=== PATIENT | female | born 1945 | race Caucasian/White ===

== ENCOUNTER 2016-11-17 11:45 | Outpatient (CLI) | payer OTHER | END 2016-11-17 21:29 | disposition home or self-care (01) | LOC: MLB 11:45 | PROVIDERS: ATTEND Family Medicine | DX: I10 Essential (primary) hypertension (principal); E78.5 Hyperlipidemia, unspecified; E55.9 Vitamin D deficiency, unspecified ==

== ENCOUNTER 2017-03-30 09:04 | Outpatient (CLI) | payer OTHER | END 2017-03-30 19:07 | disposition home or self-care (01) | LOC: MRD 09:04 | PROVIDERS: ATTEND Family Medicine | DX: M25.561 Pain in right knee (principal); M25.562 Pain in left knee | CPT/HCPCS: 73562 ==

== ENCOUNTER 2017-08-17 07:32 | Outpatient (CLI) | payer OTHER ==
[2017-08-17 07:53] LABS: BASOPHILS # (AUTO) 0.1 K/uL (0.00-0.22); BASOPHILS % (AUTO) 1.6 % (0.0-2.0); EOSINOPHILS # (AUTO) 0.1 K/uL (0-0.4); HEMATOCRIT 43.1 % (36-48); HEMOGLOBIN 14.2 g/dL (12.0-16.0); LYMPHOCYTES # (AUTO) 2.7 K/uL (2.5-16.5); LYMPHOCYTES % (AUTO) 41.5 % (20.5-51.1); MEAN CORPUSCULAR HEMOGLOBIN 31 pg (27-31); MEAN CORPUSCULAR HGB CONC 33 g/dL (33-37); MEAN CORPUSCULAR VOLUME 95 fL (80-94); MONOCYTES # (AUTO) 0.3 K/uL (0.8-1.0); MONOCYTES % (AUTO) 4.7 % (1.7-9.3); NEUTROPHILS # (AUTO) 3.2 K/uL (1.8-7.7); NEUTROPHILS % (AUTO) 50.2 % (42.2-75.2); PLATELET COUNT (AUTO) 241 K/uL (140-450); RED BLOOD CELL COUNT(AUTO) 4.56 MIL/uL (4.20-5.40); RED CELL DISTRIBUTION WIDTH 13.3 % (11.6-13.7); WHITE BLOOD COUNT (AUTO) 6.4 K/uL (4.8-10.8)
[2017-08-17 08:25] LABS: ALBUMIN 3.4 g/dL (3.4-5.0); CARBON DIOXIDE 30.2 mmol/L (21-32); CHOL/HDL RATIO 3.9 (1-4.5); POTASSIUM 4.2 mmol/L (3.5-5.1); THYROID STIMULATING HORMONE 1.19 uIU/mL (0.34-3.74); TOTAL BILIRUBIN 0.4 mg/dL (0.0-1.0)
== END 2017-08-17 21:00 | disposition home or self-care (01) ==
LOC: MLB 07:32
PROVIDERS: ATTEND Family Medicine
DX: I10 Essential (primary) hypertension (principal)
CPT/HCPCS: 36415; 80053; 84443; 85025

== ENCOUNTER 2018-03-19 09:24 | Outpatient (CLI) | payer OTHER ==
[2018-03-19 11:34] LABS: ALBUMIN 3.5 g/dL (3.4-5.0); ANION GAP 13.9 (8-16); CARBON DIOXIDE 25.1 mmol/L (21-32); CHOL/HDL RATIO 3.8 (1-4.5); CREATININE 0.9 mg/dL (0.6-1.3); TOTAL BILIRUBIN 0.5 mg/dL (0.0-1.0)
== END 2018-03-19 20:07 | disposition home or self-care (01) ==
LOC: MLB 09:24
PROVIDERS: ATTEND Family Medicine
DX: R73.9 Hyperglycemia, unspecified (principal); I12.9 Hypertensive chronic kidney disease with stage 1 through stage 4 chronic kidney disease, or unspecified chronic kidney disease; N18.3 Chronic kidney disease, stage 3 (moderate); E78.5 Hyperlipidemia, unspecified
CPT/HCPCS: 36415; 80053; 83036

== ENCOUNTER 2018-05-14 22:52 | Emergency (ER) | payer OTHER ==
[~2018-05-14] VITALS: Ht 175.3 cm; Wt 93.0 kg
[2018-05-14 23:17] VITALS: BP 175/80
[2018-05-15 01:03] VITALS: BP 175/80
== END 2018-05-15 01:03 | disposition home or self-care (01) ==
LOC: MED 22:52
DX: K91.840 Postprocedural hemorrhage of a digestive system organ or structure following a digestive system procedure (principal); I10 Essential (primary) hypertension; E78.00 Pure hypercholesterolemia, unspecified; Z90.49 Acquired absence of other specified parts of digestive tract; Z90.89 Acquired absence of other organs; Z88.1 Allergy status to other antibiotic agents
CPT/HCPCS: 99281

== ENCOUNTER 2018-11-14 22:02 | Emergency (ER) | payer OTHER ==
[~2018-11-14] VITALS: Ht 175.3 cm; Wt 94.8 kg
[2018-11-14 22:06] VITALS: BP 139/83
--- NOTE | 2018-11-14 22:11 | NUR ---
PT AMBULATED TO BED 5 WITH VSS.
--- NOTE | 2018-11-14 22:22 | NUR ---
PT BIB SELF C/O HTN. PT STATES BP AT HOME WAS 173/109, BP IS CURRENTLY 139/83. PT DENIES BLURRY VISSION, HEADACHE, N/V. HEART RRR, CAP REFILL<3SEC, NO EDEMA PRESENT. VSS. PT DENIES PAIN AT THIS TIME. ER MD TO SEE PT. BED IN LOWEST POSITION, HOB ELEVATED, SIDE RAIL UP X1. WILL CONTINUE TO MONITOR. MEDHX: HTN, HLD, HEAR MURMUR RX: ASPIRIN, AMLODIPINE, BESYLATE, PREVASTATIN, BEAZEPRIL
--- NOTE | 2018-11-14 22:32 | NUR ---
Dr. Black evaluating patient at bedside.
[2018-11-14 22:55] VITALS: BP 148/85
--- NOTE | 2018-11-14 22:55 | NUR ---
Patient discharged with v/s stable. Written and verbal after care instructions given and explained. Patient alert, oriented and verbalized understanding of instructions. Ambulatory with steady gait. All questions addressed prior to discharge. ID band removed. Patient advised to follow up with PMD. Rx of CLONIDINE 0.1MG given. Patient educated on indication of medication including possible reaction and side effects. Opportunity to ask questions provided and answered.
== END 2018-11-14 22:55 | disposition home or self-care (01) ==
LOC: MED 22:02
DX: I10 Essential (primary) hypertension (principal); Z88.1 Allergy status to other antibiotic agents
CPT/HCPCS: 99283

== ENCOUNTER 2018-12-06 08:54 | Outpatient (CLI) | payer OTHER ==
[2018-12-06 12:09] LABS: ALBUMIN 3.5 g/dL (3.4-5.0); ANION GAP 7.1 (8-16); ASPARTATE AMINOTRANSFERASE 13 U/L (15-37); CHLORIDE 106 mmol/L (98-107); CHOL/HDL RATIO 3.7 (1-4.5); CREATININE 0.9 mg/dL (0.6-1.3); GLUCOSE 90 mg/dL (74-106); HDL CHOLESTEROL 42 mg/dL (40-60); LDL (CALC) 94 mg/dL (60-100); POTASSIUM 4.1 mmol/L (3.5-5.1); SODIUM SERUM 139 mmol/L (136-145); TOTAL BILIRUBIN 0.5 mg/dL (0.0-1.0); TRIGLYCERIDES 101 mg/dL (30-150); UREA NITROGEN, BLOOD 17 mg/dL (7-18)
== END 2018-12-06 19:19 | disposition home or self-care (01) ==
LOC: MLB 08:54
PROVIDERS: ATTEND Family Medicine
DX: I12.9 Hypertensive chronic kidney disease with stage 1 through stage 4 chronic kidney disease, or unspecified chronic kidney disease (principal); N18.2 Chronic kidney disease, stage 2 (mild)
CPT/HCPCS: 36415; 80053

== ENCOUNTER 2019-01-05 11:39 | Inpatient (IN) | payer OTHER ==
[~2019-01-05] VITALS: Ht 175.3 cm; Wt 93.0 kg
[2019-01-05 11:41] VITALS: BP 133/61
--- NOTE | 2019-01-05 11:41 | NUR ---
73 Y F C/O DIZZINESS. PT WAS WORKING AT [employer] WHEN SHE SUDDENLY FELT LIGHTHEADED AND DIZZY WHILE WORKING AT HER DESK. PER PT, SHE TOLD A COWORKER SHE FELT DIZZY AND THEY STARTED WALKING TO THE ER. HITESH FERRER MET THE PT IN THE HALLWAY AND ESCORTED THE PT TO A ROOM VIA WHEELCHAIR. AA0X4. SPEECH IS CLEAR. VSS AT THIS TIME. -N/V. NO PAIN. GCS 15. BED IS DOWN, LOCKED, BED RAIL X 1. ERMD NOTIFIED. PMH- SYNCOPE, HTN, HIGH CHOLESTEROL RX- DOESNT RECALL NAMES
--- NOTE | 2019-01-05 11:55 | NUR ---
DR REHMAN AT BEDSIDE
[2019-01-05] MEDS ORDERED: NACL 0.9% 1,000 ML IV ONE (12:09)
[2019-01-05] MEDS ORDERED: FAMOTIDINE 20 MG/2 ML VIAL IVP ONE (12:10)
[2019-01-05] MEDS ORDERED: LORazepam 2 MG/ML VIAL IVP ONE (12:10)
[2019-01-05] MEDS ORDERED: ONDANSETRON 4 MG/2 ML VIAL IVP ONE (12:10)
[2019-01-05] MEDS ORDERED: MECLIZINE 25 MG TAB PO ONE (12:10)
[2019-01-05] MEDS ORDERED: hydrOXYzine HCL 25 MG TAB PO ONE (12:10)
--- NOTE | 2019-01-05 12:22 | NUR ---
PT BEING TAKEN TO RAD VIA WHEELCHAIR
--- NOTE | 2019-01-05 12:53 | NUR ---
ULTRASOUND AT BEDSIDE
[2019-01-05 13:04] LABS: BASOPHILS # (AUTO) 0.1 K/uL (0.00-0.22); BASOPHILS % (AUTO) 0.8 % (0.0-2.0); EOSINOPHILS # (AUTO) 0.2 K/uL (0-0.4); EOSINOPHILS % (AUTO) 2.7 % (0.0-4.0); HEMATOCRIT 40.9 % (36-48); HEMOGLOBIN 13.7 g/dL (12.0-16.0); LYMPHOCYTES # (AUTO) 3.1 K/uL (2.5-16.5); LYMPHOCYTES % (AUTO) 43.5 % (20.5-51.1); MEAN CORPUSCULAR HEMOGLOBIN 32 pg (27-31); MEAN CORPUSCULAR HGB CONC 34 g/dL (33-37); MEAN CORPUSCULAR VOLUME 95.4 fL (80-94); MONOCYTES # (AUTO) 0.5 K/uL (0.8-1.0); MONOCYTES % (AUTO) 7.1 % (1.7-9.3); NEUTROPHILS # (AUTO) 3.3 K/uL (1.8-7.7); NEUTROPHILS % (AUTO) 45.9 % (42.2-75.2); PLATELET COUNT (AUTO) 237 K/uL (140-450); RED BLOOD CELL COUNT(AUTO) 4.29 MIL/uL (4.20-5.40); RED CELL DISTRIBUTION WIDTH 14.1 % (11.6-13.7); WHITE BLOOD COUNT (AUTO) 7.1 K/uL (4.8-10.8)
[2019-01-05 13:09] LABS: APPEARANCE,URINE CLEAR (CLEAR); BILIRUBIN,URINE NEGATIVE (NEGATIVE); BLOOD, URINE NEGATIVE (NEGATIVE); COLOR,URINE YELLOW (YELLOW); LEUKOCYTE ESTERASE ,URINE NEGATIVE (NEGATIVE); NITRITE, URINE NEGATIVE (NEGATIVE); PH,URINE 5.5 (5.0-9.0); UGLUCOSE NEGATIVE (NEGATIVE)
[2019-01-05 13:20] LABS: ANION GAP 12.1 (8-16); CARBON DIOXIDE 26.8 mmol/L (21-32); CHLORIDE 108 mmol/L (98-107); CREATININE 0.9 mg/dL (0.6-1.3); GLUCOSE 80 mg/dL (74-106); POTASSIUM 3.9 mmol/L (3.5-5.1); SODIUM SERUM 143 mmol/L (136-145); UREA NITROGEN, BLOOD 18 mg/dL (7-18)
[2019-01-05] MEDS ORDERED: ACETAMINOPHEN 325 MG TAB PO PRN (13:25)
[2019-01-05] MEDS ORDERED: ONDANSETRON 4 MG/2 ML VIAL IM/IVP PRN (13:25)
[2019-01-05] MEDS ORDERED: HYDROcodone/APAP 5/325 MG 1 TAB TAB PO PRN (13:25)
[2019-01-05] MEDS ORDERED: DOCUSATE SODIUM 100 MG GELCAP PO PRN (13:25)
[2019-01-05 13:26] LABS: ALBUMIN 3.4 g/dL (3.4-5.0); AMYLASE 56 U/L (25-115); ASPARTATE AMINOTRANSFERASE 15 U/L (15-37); LIPASE 165 U/L (73-393); MAGNESIUM 2.1 mg/dL (1.8-2.4); TOTAL BILIRUBIN 0.4 mg/dL (0.0-1.0)
[2019-01-05 13:36] LABS: PROTHROMBIN TIME 9.3 secs (10.8-13.4); URIC ACID 4.1 mg/dL (2.6-7.2)
--- NOTE | 2019-01-05 13:59 | NUR ---
PT TAKEN TO TELE FLOOR BY CARISSA PROCTOR AND VERENICE HEATON
[2019-01-05 14:05] VITALS: BP 115/61
--- NOTE | 2019-01-05 14:05 | NUR ---
Patient will be admitted to care of [facility]. Admited to TELE. Will go to room 118. Belongings list completed. Report to ULYSSES FERRER.
[2019-01-05 14:09] LABS: PHOSPHORUS 3.1 mg/dL (2.5-4.9); THYROID STIMULATING HORMONE 0.93 uIU/mL (0.34-3.74)
[2019-01-05] MEDS ORDERED: AMLO10TA PO (14:18)
[2019-01-05] MEDS ORDERED: ASPI-1718 PO (14:18)
[2019-01-05] MEDS ORDERED: PRAV40TA1 PO (14:18)
[2019-01-05] MEDS ORDERED: BENA20TA PO (14:18)
[2019-01-05] MEDS: NACL 0.9% 1,000 ML IV SCH (15:15)
--- NOTE | 2019-01-05 15:22 | NUR ---
RECEIVED REPORT FROM ED NURSE HITESH. PT IS AAOX4, CAME IN WITH C/O OF DIZZINESS. PT AMBULATED FROM [facility] TO BED. PT HAS LEFT AC 20G. INTACT AND PATENT. PT ON RA. SKIN IS INTACT. DENIES N/V, DIARRHEA. ALL PERSONAL BELONGINGS AT BEDSIDE. POC DISCUSSED WITH PT. PT ORIENTED TO ROOM AND ENVIRONMENT. PT VERBALIZED UNDERSTANDING. BED IN LOW POSITION, CALL LIGHT WITHIN REACH. ADMISSION VS FOLLOWS: TEMP-97.3, HR-56, BP-115/61, RR-18, O2-99%, PAIN-O. Addendum: 01/05/19 at 1528 by Madeline Cevallos RN PT RECEIVED ON FLOOR at 1405---RECEIVED REPORT FROM ED NURSE HITESH. PT IS AAOX4, CAME IN WITH C/O OF DIZZINESS. PT AMBULATED FROM [facility] TO BED. PT HAS LEFT AC 20G. INTACT AND PATENT. PT ON RA. SKIN IS INTACT. DENIES N/V, DIARRHEA. ALL PERSONAL BELONGINGS AT BEDSIDE. POC DISCUSSED WITH PT. PT ORIENTED TO ROOM AND ENVIRONMENT. PT VERBALIZED UNDERSTANDING. BED IN LOW POSITION, CALL LIGHT WITHIN REACH. ADMISSION VS FOLLOWS: TEMP-97.3, HR-56, BP-115/61, RR-18, O2-99%, PAIN-O.
[2019-01-05 16:00] VITALS: BP 123/55
[2019-01-05] MEDS: MECLIZINE 25 MG TAB PO SCH (17:00)
--- NOTE | 2019-01-05 19:52 | NUR ---
ENDORSED PT TO SUBSTANCE ABUSE SERVICES DIRECTOR FOR CONTINUITY OF CARE. PT IN STABLE CONDITION AT THIS TIME.
--- NOTE | 2019-01-05 20:05 | NUR ---
RECEIVED FROM AM RN AWAKE AND ALERT IN BED SITTING UP. ORIENTED X 4. ROM X 4. " I FEEL GOOD." NO MORE FEELING OF DIZZINESS. RE-ORIENTED TO CALL LIGHT USE FOR ANY HELP SHE MAY NEED OR IF IN PAIN. ENCOURAGED TO CALL IF SHE GOES RESTROOM. IVF SITE INTACT AND WITH GOOD BLOOD RETURN. ON TELEMETRY MONITORING. DENIES ANY PAIN. DX. OF DIZZINESS. AFEBRILE.
[2019-01-05 20:50] VITALS: BP 116/50
[2019-01-05] MEDS ORDERED: BENAZEPRIL 20 MG TAB PO SCH (21:00)
[2019-01-05] MEDS ORDERED: ATORVASTATIN 20 MG TAB PO SCH (21:00)
[2019-01-05] MEDS ORDERED: NON-FORMULARY ITEM (Pravastatin Sodium* (Pravachol*) 40 MG) PO SCH (21:00)
--- NOTE | 2019-01-05 21:45 | NUR ---
SPOUSE VISITING. NO COMPLAINTS DONE. REMINDED TO USE CALL LIGHT FOR ANY HELP SHE MAY NEED. BED ALARM ON.
--- NOTE | 2019-01-06 | NUR ---
VITAL SIGNS TAKEN. SLEEPING WELL. NO COMPLAINTS DONE. DENIES ANY PAIN. "I AM OK." PT. ABLE TO VERBALIZE WELL. CALL LIGHT WITH IN REACH. IVF SITE INTACT AND NO INFILTRATION. TELEMETRY MONITORING.
[2019-01-06 00:48] VITALS: BP 112/51
[2019-01-06] MEDS: NACL 0.9% 1,000 ML IV SCH (01:26)
--- NOTE | 2019-01-06 02:00 | NUR ---
SLEEPING WELL. TELEMETRY MONITORING.
[2019-01-06 04:00] VITALS: BP 145/61
--- NOTE | 2019-01-06 04:36 | NUR ---
PT. AWAKE AND ASSISTED TO RESTROOM TO URINATE. WALKED BACK TO BED BY HERSELF. NO DIZZINESS COMPLAINTS. " I AM OK" A/O X 4. ROM X 4. CLEAR SPEECH.
--- NOTE | 2019-01-06 06:18 | NUR ---
PT. SLEEPING WELL. ABLE TO VERBALIZE NEEDS WELL. NO SOB. NO COMPLAINTS OF DIZZINESS. ABLE TO AMBULATE TO RESTROOM BY HERSELF AND BACK TO BED WELL. WILL ENDORSE TO THE NEXT RN FOR CONTINUITY OF CARE. CALL LIGHT WITH IN REACH. BED ALARM ON.
[2019-01-06 07:15] LABS: ANION GAP 12.9 (8-16); CARBON DIOXIDE 24.4 mmol/L (21-32); CHLORIDE 110 mmol/L (98-107); CREATININE 0.8 mg/dL (0.6-1.3); GLUCOSE 96 mg/dL (74-106); POTASSIUM 4.3 mmol/L (3.5-5.1); SODIUM SERUM 143 mmol/L (136-145); UREA NITROGEN, BLOOD 13 mg/dL (7-18)
[2019-01-06 07:19] LABS: BASOPHILS # (AUTO) 0.1 K/uL (0.00-0.22); BASOPHILS % (AUTO) 0.9 % (0.0-2.0); EOSINOPHILS # (AUTO) 0.2 K/uL (0-0.4); EOSINOPHILS % (AUTO) 2.8 % (0.0-4.0); HEMATOCRIT 38.4 % (36-48); HEMOGLOBIN 12.7 g/dL (12.0-16.0); LYMPHOCYTES # (AUTO) 3.2 K/uL (2.5-16.5); LYMPHOCYTES % (AUTO) 40.8 % (20.5-51.1); MEAN CORPUSCULAR HEMOGLOBIN 32 pg (27-31); MEAN CORPUSCULAR HGB CONC 33 g/dL (33-37); MEAN CORPUSCULAR VOLUME 96.9 fL (80-94); MONOCYTES # (AUTO) 0.6 K/uL (0.8-1.0); MONOCYTES % (AUTO) 7.8 % (1.7-9.3); NEUTROPHILS # (AUTO) 3.7 K/uL (1.8-7.7); NEUTROPHILS % (AUTO) 47.7 % (42.2-75.2); PLATELET COUNT (AUTO) 203 K/uL (140-450); RED BLOOD CELL COUNT(AUTO) 3.97 MIL/uL (4.20-5.40); RED CELL DISTRIBUTION WIDTH 14.1 % (11.6-13.7); WHITE BLOOD COUNT (AUTO) 7.8 K/uL (4.8-10.8)
[2019-01-06 07:21] LABS: CHOL/HDL RATIO 3.7 (1-4.5)
--- NOTE | 2019-01-06 07:30 | NUR ---
RECEIVED REPORT FROM ELIGIBILITY SPECIALIST NURSE AARON FOR CONTINUITY OF CARE. PT IN STABLE CONDITION. RESPIRATIONS EVEN AND UNLABORED. IV INTACT AND PATENT. SAFETY MEASURES IN PLACE. CALL LIGHT AT BEDSIDE. BED IN LOW POSITION. BED ALARM ON. WILL CONTINUE TO MONITOR.
--- NOTE | 2019-01-06 07:50 | NUR ---
ASSISTED PT TO RESTROOM FOR URINE. PT TOLERATED WELL. CALL LIGHT AT BEDSIDE. BED IN LOW POSITION. WILL CONTINUE TO MONITOR.
[2019-01-06 08:00] VITALS: BP 128/54
--- NOTE | 2019-01-06 08:10 | NUR ---
PATIENT HAS BEEN SCREENED AND CATEGORIZED LOW NUTRITION RISK. PATIENT WILL BE SEEN WITHIN 7 DAYS OF ADMISSION. 01/12/[address]
[2019-01-06] MEDS ORDERED: ASPIRIN 81 MG TAB.CHEW PO SCH (09:00)
[2019-01-06] MEDS ORDERED: amLODIPine 5 MG TAB PO SCH (09:00)
[2019-01-06] MEDS: MECLIZINE 25 MG TAB PO SCH ×2 (09:00→13:00)
--- NOTE | 2019-01-06 10:44 | NUR ---
ASSISTED PT TO RESTROOM FOR URINE. PT TOLERATED WELL. CALL LIGHT AT BEDSIDE. BED IN LOW POSITION. WILL CONTINUE TO MONITOR.
[2019-01-06 12:00] VITALS: BP 120/54
[2019-01-06 16:00] VITALS: BP 125/56
--- NOTE | 2019-01-06 16:44 | NUR ---
PT WALKED AROUND MST IN STABLE CONDITION. PT DENIES FEELING DIZZY AT THIS TIME. WILL CONTINUE TO MONITOR.
--- NOTE | 2019-01-06 18:10 | NUR ---
PT SITTING ON BED WITH FAMILY AT BEDSIDE IN STABLE CONDITION. WILL CONTINUE TO MONITOR. BED IN LOW POSITION. CALL LIGHT AT BEDSIDE.
--- NOTE | 2019-01-06 20:00 | NUR ---
GAVE DISCHARGE INSTRUCTIONS PT VERBALIZED UNDERSTANDING OF INSTRUCTIONS. IV REMOVED LUMEN INTACT. ID BAND REMOVE. PT REFUSED WHEELCHAIR. PT WAS WALKED OUT TO LOBBY IN STABLE CONDITION.
[2019-01-06] MEDS ORDERED: BENAZEPRIL 5 MG TAB PO SCH (21:00)
== END 2019-01-06 19:55 | disposition home or self-care (01) | DRG 74 ==
LOC: MED 11:39 → MTU 13:42 → EEVIPCON 13:42 → UNDODISIN 20:35
PROVIDERS: ADMIT Family Medicine; ATTEND Family Medicine
DX: G90.8 Other disorders of autonomic nervous system (principal); I10 Essential (primary) hypertension; E16.2 Hypoglycemia, unspecified; E86.0 Dehydration; E78.00 Pure hypercholesterolemia, unspecified; Z88.1 Allergy status to other antibiotic agents; Z88.8 Allergy status to other drugs, medicaments and biological substances; Z79.899 Other long term (current) drug therapy; Z79.82 Long term (current) use of aspirin; Z90.49 Acquired absence of other specified parts of digestive tract
CPT/HCPCS: 36415; 70450; 71045; 80048; 80053; 81003; 82150; 82948; 83036; 83690; 83735; 83880; 84100; 84134; 84443; 84484; 84550; 85025; 85379; 85610; 85730; 87081; 93005; 93880; 95816; 96374; 96375; 99285; J2060; J2405; J3490; J7030; J8597; Q0092

== ENCOUNTER 2019-05-03 10:52 | Emergency (ER) | payer OTHER ==
[~2019-05-03] VITALS: Ht 180.3 cm; Wt 90.7 kg
[~2019-05-03 10:52] MED LIST: AMLO10TA PO; ASPI-1718 PO; BENA20TA PO; PRAV40TA1 PO
[2019-05-03 11:08] VITALS: BP 143/78
--- NOTE | 2019-05-03 11:08 | NUR ---
Patient ambulated to bed 6. RN evaluating patient at bedside.
--- NOTE | 2019-05-03 11:14 | NUR ---
C/O RIGHT EYE DISCHARGE IRRITATED PRURITUS X 2 DAYS--DENIES INJURY [id number] SIGHT SWELLING AND VERY PINK SCLERA
--- NOTE | 2019-05-03 11:48 | NUR ---
Dr. Landon is evaluating the patient at bedside.
[2019-05-03 12:53] VITALS: BP 143/78
--- NOTE | 2019-05-03 12:53 | NUR ---
Patient discharged with v/s stable. Written and verbal after care instructions given and explained. Patient alert, oriented and verbalized understanding of instructions. Ambulatory with steady gait. All questions addressed prior to discharge. ID band removed. Patient advised to follow up with PMD. Rx of tobramycin/ doxycycline given. Patient educated on indication of medication including possible reaction and side effects. Opportunity to ask questions provided and answered.
== END 2019-05-03 12:51 | disposition home or self-care (01) ==
LOC: MED 10:52
DX: H10.9 Unspecified conjunctivitis (principal); I10 Essential (primary) hypertension; E78.00 Pure hypercholesterolemia, unspecified; Z79.82 Long term (current) use of aspirin; Z79.899 Other long term (current) drug therapy; Z88.1 Allergy status to other antibiotic agents
CPT/HCPCS: 99283

== ENCOUNTER 2019-06-06 08:52 | Outpatient (CLI) | payer OTHER ==
[2019-06-06 10:07] LABS: ALBUMIN 3.4 g/dL (3.4-5.0); ANION GAP 11.1 (8-16); ASPARTATE AMINOTRANSFERASE 13 U/L (15-37); CARBON DIOXIDE 29.3 mmol/L (21-32); CHLORIDE 106 mmol/L (98-107); GLUCOSE 100 mg/dL (74-106); POTASSIUM 4.4 mmol/L (3.5-5.1); SODIUM SERUM 142 mmol/L (136-145); TOTAL BILIRUBIN 0.6 mg/dL (0.0-1.0); UREA NITROGEN, BLOOD 13 mg/dL (7-18)
== END 2019-06-06 20:44 | disposition home or self-care (01) ==
LOC: MLB 08:52
PROVIDERS: ATTEND Family Medicine
DX: I10 Essential (primary) hypertension (principal)
CPT/HCPCS: 36415; 80053

== ENCOUNTER 2019-06-27 09:12 | Outpatient (CLI) | payer OTHER | END 2019-06-27 21:11 | disposition home or self-care (01) | LOC: MLB 09:12 | PROVIDERS: ATTEND Family Medicine | DX: Z13.0 Encounter for screening for diseases of the blood and blood-forming organs and certain disorders involving the immune mechanism (principal) | CPT/HCPCS: 82272 ==

== ENCOUNTER 2020-08-06 10:40 | Outpatient (CLI) | payer OTHER ==
[~2020-08-06 10:40] MED LIST changes: -ASPI-1718 PO; +ASPI-1822 PO
[2020-08-06 11:02] LABS: BASOPHILS % (AUTO) 0.4 % (0.0-2.0); EOSINOPHILS # (AUTO) 0.3 K/uL (0-0.4); EOSINOPHILS % (AUTO) 4.1 % (0.0-4.0); HEMATOCRIT 41.8 % (36-48); HEMOGLOBIN 14.1 g/dL (12.0-16.0); LYMPHOCYTES # (AUTO) 1.9 K/uL (2.5-16.5); LYMPHOCYTES % (AUTO) 25.1 % (20.5-51.1); MEAN CORPUSCULAR HEMOGLOBIN 32 pg (27-31); MEAN CORPUSCULAR HGB CONC 34 g/dL (33-37); MEAN CORPUSCULAR VOLUME 96.3 fL (80-94); MONOCYTES # (AUTO) 0.3 K/uL (0.8-1.0); MONOCYTES % (AUTO) 3.8 % (1.7-9.3); NEUTROPHILS % (AUTO) 66.6 % (42.2-75.2); PLATELET COUNT (AUTO) 259 K/uL (140-450); RED BLOOD CELL COUNT(AUTO) 4.34 MIL/uL (4.20-5.40); WHITE BLOOD COUNT (AUTO) 7.5 K/uL (4.8-10.8)
[2020-08-06 11:24] LABS: ALBUMIN 3.6 g/dL (3.4-5.0); ANION GAP 13.8 (8-16); ASPARTATE AMINOTRANSFERASE 17 U/L (15-37); CARBON DIOXIDE 24.7 mmol/L (21-32); CHLORIDE 104 mmol/L (98-107); CHOL/HDL RATIO 4.1 (1-4.5); GLUCOSE 100 mg/dL (74-106); HDL CHOLESTEROL 42 mg/dL (40-60); LDL (CALC) 108 mg/dL (60-100); POTASSIUM 4.5 mmol/L (3.5-5.1); SODIUM SERUM 138 mmol/L (136-145); THYROID STIMULATING HORMONE 1.06 uIU/mL (0.34-3.74); TOTAL BILIRUBIN 0.6 mg/dL (0.0-1.0); TRIGLYCERIDES 116 mg/dL (30-150); UREA NITROGEN, BLOOD 15 mg/dL (7-18)
== END 2020-08-06 19:39 | disposition home or self-care (01) ==
LOC: MLB 10:40
PROVIDERS: ATTEND Family Medicine
DX: E78.2 Mixed hyperlipidemia (principal); I10 Essential (primary) hypertension
CPT/HCPCS: 36415; 80053; 82306; 84443; 85025

== ENCOUNTER 2020-10-10 11:56 | Emergency (ER) | payer OTHER, SELFPAY ==
[~2020-10-10] VITALS: Ht 175.3 cm; Wt 95.3 kg
[2020-10-10 12:15] VITALS: BP 128/91
--- NOTE | 2020-10-10 12:26 | NUR ---
75 y/o female from home c/o cough, fever, and fatigue x 2 days. Unknown covid contact. RR even and unlabored, does not appear to be in distress. Skin warm, dry, and intact. vss
--- NOTE | 2020-10-10 14:35 | NUR ---
Patient discharged with v/s stable. Written and verbal after care instructions given and explained. Patient alert, oriented and verbalized understanding of instructions. Ambulatory with steady gait. All questions addressed prior to discharge. ID band removed. Patient advised to follow up with PMD. Rx of Ibuprofen 600mg, promethazine 6.25 given. Patient educated on indication of medication including possible reaction and side effects. Opportunity to ask questions provided and answered.
--- NOTE | 2020-10-10 14:35 | NUR ---
Covid swab collected and walked to lab.
[2020-10-10 14:36] VITALS: BP 128/91
--- NOTE | 2020-10-11 17:51 | NUR ---
Covid results received from lab. Results = POSITIVE. Hard copy requested from lab and placed in infection controls mailbox.
== END 2020-10-10 14:35 | disposition home or self-care (01) ==
LOC: MED 11:56
DX: B34.9 Viral infection, unspecified (principal); Z20.828 Contact with and (suspected) exposure to other viral communicable diseases; I10 Essential (primary) hypertension; Z79.899 Other long term (current) drug therapy; Z79.82 Long term (current) use of aspirin; Z88.1 Allergy status to other antibiotic agents
CPT/HCPCS: 71045; 99284; U0003

== ENCOUNTER 2020-11-24 11:40 | Outpatient (CLI) | payer OTHER | END 2020-11-24 20:17 | disposition home or self-care (01) | LOC: MRD 11:40 | PROVIDERS: ATTEND Family Medicine | DX: M51.36 Other intervertebral disc degeneration, lumbar region (principal); M43.16 Spondylolisthesis, lumbar region; M54.5 Low back pain | CPT/HCPCS: 72110 ==

== ENCOUNTER 2021-03-04 09:32 | Outpatient (CLI) | payer OTHER ==
[2021-03-04 10:04] LABS: ALBUMIN 3.6 g/dL (3.4-5.0); ASPARTATE AMINOTRANSFERASE 20 U/L (15-37); CARBON DIOXIDE 26.2 mmol/L (21-32); CHLORIDE 105 mmol/L (98-107); CHOL/HDL RATIO 3.6 (1-4.5); CREATININE 0.9 mg/dL (0.6-1.3); GLUCOSE 107 mg/dL (74-106); HDL CHOLESTEROL 45 mg/dL (40-60); LDL (CALC) 99 mg/dL (60-100); POTASSIUM 4.2 mmol/L (3.5-5.1); SODIUM SERUM 140 mmol/L (136-145); TOTAL BILIRUBIN 0.6 mg/dL (0.0-1.0); TRIGLYCERIDES 104 mg/dL (30-150); UREA NITROGEN, BLOOD 14 mg/dL (7-18)
== END 2021-03-04 20:48 | disposition home or self-care (01) ==
LOC: MLB 09:32
PROVIDERS: ATTEND Family Medicine
DX: I10 Essential (primary) hypertension (principal)
CPT/HCPCS: 36415; 80053

== ENCOUNTER 2021-05-04 09:17 | Outpatient (CLI) | payer OTHER | END 2021-05-04 16:45 | disposition home or self-care (01) | LOC: MRD 09:17 | PROVIDERS: ATTEND Family Medicine | DX: R05 Cough (principal) | CPT/HCPCS: 71046 ==

== ENCOUNTER 2021-08-12 09:35 | Outpatient (CLI) | payer OTHER ==
[2021-08-12 10:34] LABS: BASOPHILS # (AUTO) 0.1 K/uL (0.00-0.22); BASOPHILS % (AUTO) 0.9 % (0.0-2.0); EOSINOPHILS # (AUTO) 0.3 K/uL (0-0.4); EOSINOPHILS % (AUTO) 4.2 % (0.0-4.0); HEMATOCRIT 40.4 % (36-48); HEMOGLOBIN 13.7 g/dL (12.0-16.0); LYMPHOCYTES # (AUTO) 2.3 K/uL (2.5-16.5); LYMPHOCYTES % (AUTO) 36.2 % (20.5-51.1); MEAN CORPUSCULAR HEMOGLOBIN 32 pg (27-31); MEAN CORPUSCULAR HGB CONC 34 g/dL (33-37); MEAN CORPUSCULAR VOLUME 94.7 fL (80-94); MONOCYTES # (AUTO) 0.5 K/uL (0.8-1.0); MONOCYTES % (AUTO) 8.3 % (1.7-9.3); NEUTROPHILS # (AUTO) 3.2 K/uL (1.8-7.7); NEUTROPHILS % (AUTO) 50.4 % (42.2-75.2); PLATELET COUNT (AUTO) 244 K/uL (140-450); RED BLOOD CELL COUNT(AUTO) 4.26 MIL/uL (4.20-5.40); RED CELL DISTRIBUTION WIDTH 13.7 % (11.6-13.7); WHITE BLOOD COUNT (AUTO) 6.3 K/uL (4.8-10.8)
[2021-08-12 10:58] LABS: ALBUMIN 3.5 g/dL (3.4-5.0); ANION GAP 12.5 (8-16); ASPARTATE AMINOTRANSFERASE 18 U/L (15-37); CARBON DIOXIDE 27.7 mmol/L (21-32); CHLORIDE 106 mmol/L (98-107); CHOL/HDL RATIO 3.4 (1-4.5); CREATININE 0.8 mg/dL (0.6-1.3); GLUCOSE 98 mg/dL (74-106); HDL CHOLESTEROL 45 mg/dL (40-60); LDL (CALC) 85 mg/dL (60-100); POTASSIUM 4.2 mmol/L (3.5-5.1); SODIUM SERUM 142 mmol/L (136-145); THYROID STIMULATING HORMONE 0.94 uIU/mL (0.34-3.74); TOTAL BILIRUBIN 0.6 mg/dL (0.0-1.0); TRIGLYCERIDES 114 mg/dL (30-150); UREA NITROGEN, BLOOD 11 mg/dL (7-18)
== END 2021-08-13 14:51 | disposition home or self-care (01) ==
LOC: MLB 09:35
PROVIDERS: ATTEND Family Medicine
DX: I10 Essential (primary) hypertension (principal); E78.2 Mixed hyperlipidemia
CPT/HCPCS: 36415; 80053; 82306; 84443; 85025

== ENCOUNTER 2021-12-09 10:27 | Outpatient (CLI) | payer OTHER ==
[2021-12-09 14:14] LABS: ALBUMIN 3.6 g/dL (3.4-5.0); ANION GAP 11.3 (8-16); ASPARTATE AMINOTRANSFERASE 19 U/L (15-37); CARBON DIOXIDE 28.8 mmol/L (21-32); CHLORIDE 105 mmol/L (98-107); CHOL/HDL RATIO 4.6 (1-4.5); CREATININE 0.8 mg/dL (0.6-1.3); GLUCOSE 94 mg/dL (74-106); HDL CHOLESTEROL 40 mg/dL (40-60); LDL (CALC) 109 mg/dL (60-100); POTASSIUM 4.1 mmol/L (3.5-5.1); SODIUM SERUM 141 mmol/L (136-145); THYROID STIMULATING HORMONE 1.34 uIU/mL (0.34-3.74); TOTAL BILIRUBIN 0.5 mg/dL (0.0-1.0); TRIGLYCERIDES 173 mg/dL (30-150); UREA NITROGEN, BLOOD 11 mg/dL (7-18)
== END 2021-12-09 21:00 | disposition home or self-care (01) ==
LOC: MLB 10:27
PROVIDERS: ATTEND Family Medicine
DX: I10 Essential (primary) hypertension (principal)
CPT/HCPCS: 36415; 80053; 82306; 84443

== ENCOUNTER 2022-07-07 10:20 | Outpatient (CLI) | payer OTHER ==
[2022-07-07 10:41] LABS: BASOPHILS # (AUTO) 0.1 K/uL (0.00-0.22); BASOPHILS % (AUTO) 1.2 % (0.0-2.0); EOSINOPHILS # (AUTO) 0.1 K/uL (0-0.4); HEMATOCRIT 42.4 % (36-48); HEMOGLOBIN 14.2 g/dL (12.0-16.0); LYMPHOCYTES # (AUTO) 2.5 K/uL (2.5-16.5); MEAN CORPUSCULAR HEMOGLOBIN 32 pg (27-31); MEAN CORPUSCULAR HGB CONC 34 g/dL (33-37); MEAN CORPUSCULAR VOLUME 95.2 fL (80-94); MONOCYTES # (AUTO) 0.5 K/uL (0.8-1.0); MONOCYTES % (AUTO) 8.1 % (1.7-9.3); NEUTROPHILS # (AUTO) 3.4 K/uL (1.8-7.7); NEUTROPHILS % (AUTO) 50.7 % (42.2-75.2); PLATELET COUNT (AUTO) 252 K/uL (140-450); RED BLOOD CELL COUNT(AUTO) 4.45 MIL/uL (4.20-5.40); WHITE BLOOD COUNT (AUTO) 6.7 K/uL (4.8-10.8)
[2022-07-07 11:05] LABS: ALBUMIN 3.3 g/dL (3.4-5.0); ANION GAP 15.1 (8-16); ASPARTATE AMINOTRANSFERASE 18 U/L (15-37); CARBON DIOXIDE 25.6 mmol/L (21-32); CHLORIDE 106 mmol/L (98-107); CHOL/HDL RATIO 3.7 (1-4.5); CREATININE 0.8 mg/dL (0.6-1.3); GLUCOSE 104 mg/dL (74-106); HDL CHOLESTEROL 47 mg/dL (40-60); LDL (CALC) 100 mg/dL (60-100); POTASSIUM 3.7 mmol/L (3.5-5.1); SODIUM SERUM 143 mmol/L (136-145); THYROID STIMULATING HORMONE 0.78 uIU/mL (0.34-3.74); TOTAL BILIRUBIN 0.5 mg/dL (0.0-1.0); TRIGLYCERIDES 146 mg/dL (30-150); UREA NITROGEN, BLOOD 10 mg/dL (7-18)
== END 2022-07-07 22:00 | disposition home or self-care (01) ==
LOC: MLB 10:20
PROVIDERS: ATTEND Family Medicine
DX: I10 Essential (primary) hypertension (principal); Z79.899 Other long term (current) drug therapy
CPT/HCPCS: 36415; 80053; 82306; 84443; 85025

== ENCOUNTER 2022-08-01 10:57 | Outpatient (CLI) | payer OTHER | END 2022-08-01 23:59 | disposition home or self-care (01) | LOC: MLB 10:57 → EDSTATUS 08-06 12:52 | PROVIDERS: ATTEND Family Medicine | DX: I10 Essential (primary) hypertension (principal); Z79.899 Other long term (current) drug therapy | CPT/HCPCS: 36415; 82306 ==

== ENCOUNTER 2022-08-31 19:25 | Emergency (ER) | payer OTHER ==
[~2022-08-31] VITALS: Ht 175.3 cm; Wt 95.3 kg
--- NOTE | 2022-08-31 19:50 | NUR ---
SWABS FOR RUSSELL,INFLUENZA SENT TO LAB
[2022-08-31 19:51] VITALS: BP 167/110
--- NOTE | 2022-08-31 19:51 | NUR ---
TO BED AMBULATORY
--- NOTE | 2022-08-31 20:21 | NUR ---
Patient BIB by family from home. C/O fever x 3 days. Patient reported, had fever, headache, cough and congestion for 3 days.
--- NOTE | 2022-08-31 20:32 | NUR ---
Dr. Breaux examining patient.
[2022-08-31] MEDS ORDERED: NACL 0.9% 1,000 ML IV ONE (20:40)
[2022-08-31] MEDS ORDERED: KETOROLAC 30 MG/ML VIAL IVP ONE (20:40)
[2022-08-31] MEDS ORDERED: ALBUTEROL 0.083% 2.5 MG/3 ML NEBU INH ONE (20:40)
[2022-08-31] MEDS ORDERED: ONDANSETRON 4 MG/2 ML VIAL IVP ONE (20:40)
[2022-08-31 21:00] LABS: BASOPHILS # (AUTO) 0.1 K/uL (0.00-0.22); BASOPHILS % (AUTO) 0.7 % (0.0-2.0); EOSINOPHILS # (AUTO) 0.2 K/uL (0-0.4); EOSINOPHILS % (AUTO) 2.7 % (0.0-4.0); HEMATOCRIT 43.3 % (36-48); HEMOGLOBIN 14.7 g/dL (12.0-16.0); LYMPHOCYTES # (AUTO) 2.2 K/uL (2.5-16.5); LYMPHOCYTES % (AUTO) 25.6 % (20.5-51.1); MEAN CORPUSCULAR HEMOGLOBIN 33 pg (27-31); MEAN CORPUSCULAR HGB CONC 34 g/dL (33-37); MEAN CORPUSCULAR VOLUME 96.1 fL (80-94); MONOCYTES # (AUTO) 0.8 K/uL (0.8-1.0); MONOCYTES % (AUTO) 9.2 % (1.7-9.3); NEUTROPHILS # (AUTO) 5.2 K/uL (1.8-7.7); NEUTROPHILS % (AUTO) 61.8 % (42.2-75.2); PLATELET COUNT (AUTO) 226 K/uL (140-450); RED CELL DISTRIBUTION WIDTH 14.3 % (11.6-13.7); WHITE BLOOD COUNT (AUTO) 8.5 K/uL (4.8-10.8)
--- NOTE | 2022-08-31 21:07 | NUR ---
Respiratory Therapist at bedside for respiratory intervention.
[2022-08-31 21:21] LABS: ALBUMIN 3.4 g/dL (3.4-5.0); ANION GAP 13.3 (8-16); ASPARTATE AMINOTRANSFERASE 22 U/L (15-37); CARBON DIOXIDE 29.1 mmol/L (21-32); CHLORIDE 102 mmol/L (98-107); CREATININE 0.9 mg/dL (0.6-1.3); GLUCOSE 106 mg/dL (74-106); POTASSIUM 4.4 mmol/L (3.5-5.1); SODIUM SERUM 140 mmol/L (136-145); TOTAL BILIRUBIN 0.5 mg/dL (0.0-1.0); UREA NITROGEN, BLOOD 20 mg/dL (7-18)
--- NOTE | 2022-08-31 21:28 | NUR ---
X-Ray at bedside.
[2022-08-31] MEDS ORDERED: ALBU0.0912 IH (21:32)
[2022-08-31] MEDS ORDERED: ACET-10509 PO (21:32)
[2022-08-31] MEDS ORDERED: TAM75 PO (21:32)
[2022-08-31] MEDS ORDERED: INHA1SPA24 MC (21:32)
[2022-08-31] MEDS ORDERED: IBUP-2213 PO (21:32)
--- NOTE | 2022-08-31 21:45 | NUR ---
Dr. Breaux explained results and treatment plans.
[2022-08-31 21:55] VITALS: BP 142/89
--- NOTE | 2022-08-31 21:55 | NUR ---
Patient discharged with v/s stable. Written and verbal after care instructions given and explained. Patient alert, oriented and verbalized understanding of instructions. Ambulatory with steady gait. All questions addressed prior to discharge. ID band removed. Patient advised to follow up with PMD. Rx of Proventil, Ibuprofen, Tamiflu and Tylenol given. Patient educated on indication of medication including possible reaction and side effects. Opportunity to ask questions provided and answered.
== END 2022-08-31 21:55 | disposition home or self-care (01) ==
LOC: MED 19:25 → EEVIPCON 19:25 → MED 21:55
DX: J10.1 Influenza due to other identified influenza virus with other respiratory manifestations (principal); Z20.822 Contact with and (suspected) exposure to COVID-19; I10 Essential (primary) hypertension; Z79.899 Other long term (current) drug therapy
CPT/HCPCS: 36415; 71045; 80053; 84484; 85025; 87040; 87426; 87804; 94640; 96361; 96374; 96375; 99284; J1885; J2405; J7030; J7613